=== PATIENT | male | born 1960 | race Caucasian/White ===

== ENCOUNTER 2018-12-24 19:16 | Emergency (ER) | payer OTHER ==
[~2018-12-24] VITALS: Ht 182.9 cm; Wt 70.5 kg
--- NOTE | 2018-12-24 19:37 | NUR ---
GAYLE URBINA FROM HOME. [facility]. PT. FRIEND WHO HELPS TAKE CARE OF HIM REPORTED THAT HE WAS MUCH MORE LETHARGIC THAN NORMAL AND HAD BEEN C/O DIFFUSE ABD PAIN 6/10 ALL DAY TODAY. PT. REPORTS NO BM X 3 DAYS. C/O NAUSEA. FSBS EN ROUTE 135. 4MG IV ZOFRAN AND 250 ML OF NS ADMIN EN ROUTE. PT. DROWSY BUT ORIENTED X 4. HX OF STAGE 4 LUNG CA, LAST CHEMO SUN LAST WEEK PER REPORT. PT. PLACED ON CONTINUOUS PULSE OX, B/P, AND HEART MONITORS. NSR NOTED ON MONITOR WITH SOME PVC'S PRESNET. CALL LIGHT IN REACH. ALL SAFETY MEASURES OBSERVED. ILA NORMAN IN TO EVAL PT. AND DISCUSS POC. WARM BLANKETS PROVIDED.
--- NOTE | 2018-12-24 19:39 | NUR ---
REPORT TO CHRISTOS CHOPRA TO ASSUME CARE OF PT.
[2018-12-24] MEDS ORDERED: SODIUM CHLORIDE 0.9% 1,000ML IVBOLUS ONE (20:00)
[2018-12-24] MEDS ORDERED: SODIUM CHLORIDE FLUSH 10ML SYR IVF ONE (20:00)
[2018-12-24 20:05] LABS: BASOPHILS % (AUTO) 0 % (0-1); EOSINOPHILS # (AUTO) 0.03 x10^3/uL (0-0.4); EOSINOPHILS % (AUTO) 0 % (1-7); LYMPHOCYTES # (AUTO) 0.31 x10^3/uL (1-3.4); LYMPHOCYTES % (AUTO) 5 % (22-44); MD NO; MEAN CORPUSCULAR HEMOGLOBIN 29.4 pg (27.5-34.5); MEAN CORPUSCULAR HGB CONC 33.3 g/dL (33.2-36.2); MEAN CORPUSCULAR VOLUME 88.3 fL (81-97); MEAN PLATELET VOLUME 6.3 fL (7.4-10.4); MONOCYTES # (AUTO) 0.57 x10^3/uL (0.2-0.8); MONOCYTES % (AUTO) 9 % (2-9); NEUTROPHILS # (AUTO) 5.45 x10^3/uL (1.8-6.8); NEUTROPHILS % (AUTO) 86 % (42-75); PLATELET COUNT 310 x10^3/uL (130-400); RED BLOOD COUNT 5.05 x10^6/uL (4.38-5.82)
[2018-12-24 20:13] LABS: ALANINE AMINOTRANSFERASE 46 U/L (12-78); ALBUMIN 3.9 g/dL (3.4-5.0); ANION GAP 6 mmol/L (5-15); CALCIUM 9.3 mg/dL (8.5-10.1); CHLORIDE 108 mmol/L (98-107); CREATININE 1.01 mg/dL (0.7-1.3)
[2018-12-24 20:18] LABS: ALKALINE PHOSPHATASE 104 U/L (45-117); BILIRUBIN,TOTAL 0.6 mg/dL (0.2-1.0); TOTAL PROTEIN 9.1 g/dL (6.4-8.2); TROPONIN I < 0.015 ng/mL (0.000-0.045)
--- NOTE | 2018-12-24 20:25 | NUR ---
pt to ct
[2018-12-24] MEDS ORDERED: OMNIPAQUE 350 MG/ML, 100ML BOTTLE ONE (20:41)
--- NOTE | 2018-12-24 21:29 | NUR ---
PT AWARE THAT WE NEED URINE SAMPLE. PT REFUSES TO ATTEMPT TO PROVIDE SAMPLE STATING "I CAN'T GO YET" AND REFUSES STRAIGHT CATH. NOTIFIED. PT DOZING ON GURNEY, AWAKENS EASILY TO NAME BEING CALLED. PT AO X 4. SKIN WARM AND DRY. RESP EVEN AND UNLABORED. PT ON CONT BP, CARDIAC AND O2 MONITORS. CALL LIGHT WITHIN REACH. WILL CONT TO MONITOR PT.
--- NOTE | 2018-12-24 21:59 | NUR ---
REPORT TO CHRISTOS MURPHY WHO ASSUMED CARE OF PT.
[2018-12-24 22:33] VITALS: BP 108/52
--- NOTE | 2018-12-24 22:33 | NUR ---
PT ASLEEP, NO APPARENT DISTRESS NOTED AT THIS TIME.
--- NOTE | 2018-12-25 00:19 | NUR ---
Patient/Caregiver given discharge instructions and they have confirmed that they understand the instructions. Patient ambulatory with steady gait.
--- NOTE | 2018-12-25 00:22 | NUR ---
PT GIVEN TAXI VOUCHER PRIOR TO DC.
== END 2018-12-25 00:23 | disposition home or self-care (01) ==
LOC: ED 23:00
DX: K59.00 Constipation, unspecified (principal); C34.90 Malignant neoplasm of unspecified part of unspecified bronchus or lung; C78.7 Secondary malignant neoplasm of liver and intrahepatic bile duct
CPT/HCPCS: 36415; 71260; 74177; 80053; 83690; 84484; 85025; 99284; J7030; Q9967